=== PATIENT | male | born 1995 | race Caucasian/White ===

== ENCOUNTER 2018-02-15 22:31 | Emergency (ER) | payer BC ==
[~2018-02-15] VITALS: Ht 180.3 cm; Wt 74.8 kg
[~2018-02-15 22:31] MED LIST: IBUPROFEN 800800 MG PO
[2018-02-15 22:32] VITALS: BP 124/64
[2018-02-15] MEDS ORDERED: PREDNISONE 20 M20 MG PO (23:24)
== END 2018-02-15 23:44 | disposition home or self-care (01) ==
LOC: ER 22:31
DX: L29.9 Pruritus, unspecified (principal); R21 Rash and other nonspecific skin eruption; F17.210 Nicotine dependence, cigarettes, uncomplicated

== ENCOUNTER 2019-07-21 23:11 | Emergency (ER) | payer OTHER ==
[~2019-07-21] VITALS: Ht 180.3 cm; Wt 77.1 kg
[~2019-07-21 23:11] MED LIST changes: +PREDNISONE 20 M20 MG PO
[2019-07-22 01:45] VITALS: BP 134/77
--- NOTE | 2019-07-22 09:43 | EKG ---
[facility] [place] [address] ELECTROCARDIOGRAM REPORT Name: JOSAFAT GUAN Room #: DEP [facility]#: [id number] Admission: 07/21/19 Attend Phys: Discharge: 07/22/19 Date of : [birth year] Report #: [id number] THIS REPORT FOR: cc: NILDA - Esther family physician/PCP NILDA - Esther family physician/PCP Juan Monteiro MD ~ THIS REPORT FOR: //name// [facility] ED Test Date: 2019-07-21 Test Time: 23:41:49 Pat Name: JOSAFAT GUAN Department: Room: Gender: [employer] Developer: [facility] : 1995 Requested By: Alexander Higuera Order Number: [id number] MD: Juan Monteiro Measurements Intervals [place] Rate: 74 P: 69 [place]: 117 QRS: 23 QRSD: 87 T: 38 QT: 370 QTc: 411 Interpretive Statements Sinus rhythm Borderline short [place] interval ST elev, probable normal early repol pattern No previous ECG available for comparison Electronically Signed On 07-22-2019 9:42:04 CDT by Juan Monteiro [email or web address] <ELECTRONICALLY SIGNED> By: Juan Monteiro MD 07/22/19 [id number] Juan Monteiro MD /EPI
== END 2019-07-22 02:00 | disposition home or self-care (01) ==
LOC: ER 23:11
DX: J06.9 Acute upper respiratory infection, unspecified (principal); R07.89 Other chest pain; F17.210 Nicotine dependence, cigarettes, uncomplicated

== ENCOUNTER 2020-01-03 19:08 | Emergency (ER) | payer OTHER, BC ==
[~2020-01-03] VITALS: Ht 180.3 cm; Wt 61.2 kg
[2020-01-03] MEDS ORDERED: HYDROCODON-ACE1 EAC7 PO (20:06)
[2020-01-03 20:58] VITALS: BP 116/70
== END 2020-01-03 20:58 | disposition home or self-care (01) ==
LOC: ER 19:08
DX: Z04.1 Encounter for examination and observation following transport accident (principal); F17.210 Nicotine dependence, cigarettes, uncomplicated; Z79.899 Other long term (current) drug therapy; V89.2XXA Person injured in unspecified motor-vehicle accident, traffic, initial encounter; Y93.I9 Activity, other involving external motion; Y92.488 Other paved roadways as the place of occurrence of the external cause; Y99.8 Other external cause status